=== PATIENT | female | born 1965 | race Caucasian/White ===

== ENCOUNTER 2019-09-04 11:03 | Day surgery (SDC) | payer OTHER ==
[2019-09-03 14:16] VITALS: BMI 25.4
[~2019-09-04 11:03] MED LIST: BACITRACIN 15 GM TUBE TOPICAL OINTMENT TP ONE; LIDOCAINE 1%/EPI 1:100000 (50 ML MULTI DOSE VIAL) NR ONE
[2019-09-04] MEDS ORDERED: LIDOCAINE HCL 2% (20ML MULTI-DOSE VIAL) NR ONE (12:18)
[2019-09-04] MEDS ORDERED: PROPOFOL 20 ML ONE (12:41)
[2019-09-04] MEDS ORDERED: MIDAZOLAM HCL 2 MG/2 ML SINGLE DOSE VIAL ONE (12:41)
[2019-09-04] MEDS ORDERED: BUPIVACAINE HCL/PF 0.5% (5 MG/ML) 30 ML VIAL IJ ONE ×2 (12:53→13:22)
--- NOTE | 2019-09-04 12:58 | CONSULT ---
Consult - text type - Consultation Consultation Note: 53 y/o female seen in pre op area for removal of right foot lateral soft tissue mass excision. Patient agrees to above procedure. NPO status has been verified with the patient and all questions and concerns were addressed. patient has antibiotics sent to her pharmacay as well as pain medication. Will call tomorrow for follow up with patient and she has an appt to see me next week in the office. Patient to the OR.
[2019-09-04] MEDS ORDERED: LIDOCAINE HCL 2% (50ML VIAL) NR ONE (13:13)
[2019-09-04] MEDS ORDERED: PROMETHAZINE HCL 25 MG/1 ML VIAL IVPB PRN (13:21)
[2019-09-04] MEDS ORDERED: ceFAZolin SODIUM 1 GM VIAL IVPB ONE (13:21)
[2019-09-04] MEDS ORDERED: oxyCODONE HCL 5 MG TABLET PO PRN ×3 (13:21→14:43)
[2019-09-04] MEDS ORDERED: ONDANSETRON 4 MG/2 ML VIAL IVPUSH PRN (13:21)
[2019-09-04] MEDS ORDERED: LACTATED RINGERS SOLUTION 1,000 ML IV SCH (13:30)
[2019-09-04] MEDS ORDERED: BACITRACIN 15 GM TUBE TOPICAL OINTMENT ONE (13:50)
[2019-09-04] MEDS ORDERED: BACITRACIN 15 GM TUBE TOPICAL OINTMENT TP ONE (13:57)
--- NOTE | 2019-09-04 14:07 | OP ---
Operative Note - Note: Operative Date: 09/04/19 Pre-Operative Diagnosis: Right foot soft tissue mass; ganglion Operation: right foot soft tissue mass removal Findings: see dictation removal soft tissuemass Implants: none Post-Operative Diagnosis: Same as Pre-op Surgeon: Sanjay Ferrer Anesthesia: Local Specimens Removed: soft tisse mass - Pathology Estimated Blood Loss (mls): 5 Operative Report Dictated: Yes
[2019-09-04] MEDS ORDERED: ACETAMINOPHEN 325 MG TABLET (FP) PO PRN ×2 (14:43)
[2019-09-04 15:21] VITALS: BP 132/86; PULSE 69; TEMP 97.8
--- NOTE | 2019-09-04 16:57 | OP ---
DATE OF OPERATION: 09/04/2019 PREOPERATIVE DIAGNOSIS: Right foot soft tissue mass. POSTOPERATIVE DIAGNOSIS: Right foot soft tissue mass. PROCEDURE PERFORMED: Right foot soft tissue mass excision in pathology. SURGEON: Sanjay Ferrer DPM ANESTHESIA: Light IV sedation with local injections. INDICATIONS: Patient is a 53-year-old female with the above-mentioned diagnosis. Patient exhausted all forms of conservative treatment at this time, wishes to have surgical removal of conditions listed above. Given the patient's history of breast mass, she wanted to have the mass removed and sent for pathology to rule out anything of a malignant nature. Prior to taking the patient to the OR, n.p.o. was noted, and the consent was signed with all questions and concerns addressed. OPERATIVE PROCEDURE: Patient was brought to the operating room, placed on the operating table in supine position. A pneumatic ankle tourniquet was placed on the patient's right ankle at 250 mmHg. Following the application of the tourniquet, a local injection of 15 mL of 2% lidocaine plain was injected into the patient's right ankle in block-type fashion without complications. Following this, the right foot was prepped and draped in normal sterile manner and procedure began. Procedure number 1: Right foot removal of soft tissue mass. At this time, attention was directed to the anterolateral aspect of the patient's right ankle. Noted at the sinus tarsi, there was a large underlying soft tissue mass under the soft tissue. With a curvilinear incision and a number 15 blade, a roughly 1.5-cm long incision was made directly overlying the area. Immediately upon incision, there was noted to be gelatinous material extruding from underneath the subcutaneous fat. The subcutaneous fat was removed, and all small bleeders were ligated as necessary. No neurovascular structures were noted at this time, and so, the incision was carried deep. The main soft tissue mass was identified extending out from the sinus tarsi area. This was grabbed and freed of all surrounding soft tissue mass and plantar fat by use of blunt dissection with the Metzenbaum scissors. Once the soft tissue mass was carried deep down into the sinus tarsi, the mass was resected, and the stalk of the soft tissue mass was Bovied to help prevent any type of recurrence. No further soft tissue mass was noted. It was noted that some of the fat around the soft tissue mass had already became slightly calcified and hardened from which soft tissue mass had been there for likely so long. Following this, the wound was flushed with copious amounts of normal sterile saline. The wound was then closed with 3-0 Vicryl for deep closure, 4-0 Vicryl and 4-0 Monocryl, Steri-Strips, Adaptic, bacitracin, and dry sterile dressing overlying. POSTOPERATIVE CONDITION: patient tolerated anesthesia and procedure well, was transported to recovery room with vital signs stable and neurovascular status intact to the right foot. This patient will be following with me in my office tomorrow, and I will be giving her a call tomorrow to confirm everything is going okay. HADLEY PLATA/[id number]
--- NOTE | 2019-09-08 17:49 | PATH ---
Surgical Pathology Report Patient Name: TERE DUGAN [facility]. Rec. #: [id number] /Age/Gender: 1965 (Age: 53) / F Account: [id number] Location: [facility] SURGICAL Taken: 09/04/2019 Received: 09/05/2019 Reported: 09/08/2019 Physicians: Sanjay Ferrer DPM Specimen(s) Received SOFT TISSUE MASS, FOOT, RIGHT Clinical History Soft tissue mass of right foot Final Diagnosis SOFT TISSUE MASS, FOOT, RIGHT, EXCISION: CONSISTENT WITH GANGLION CYST(S). Electronically Signed Marcella Garsia M.D. Gross Description Received in formalin labeled "right foot soft tissue mass," is a 3.5 x 2.5 x 0.8 cm aggregate of yellow-moise soft tissue fragments. Sectioning of one of the larger fragments displays a possible cystic structure containing mucinous material. District Gauger sections of the possible cystic structure are submitted in one cassette. DL/09/05/2019 saudi/09/05/2019
== END 2019-09-04 15:10 | disposition home or self-care (01) ==
LOC: JASU-SURG 11:03
PROVIDERS: ATTEND Podiatrist Foot & Ankle Surgery
PROC: 0JBQ0ZZ Excision of Right Foot Subcutaneous Tissue and Fascia, Open Approach (ICD-10-PCS; principal; 2019-09-04 13:00)
DX: D21.21 Benign neoplasm of connective and other soft tissue of right lower limb, including hip (principal)
CPT/HCPCS: 88304-TC